=== PATIENT | male | born 1985 | race American Indian/Alaskan Native ===

== ENCOUNTER → 2018-04-25 | Emergency (ER) | payer MEDICAID ==
[~2018-04-25] MED LIST: BACTRIM IV ONE; CALCIUM GLUCONATE 1,000 MG in NACL 0.9% 100 ML IV ONE; D50W (25GM) Syringe IV ONE; D50W (25GM) Vial IV ONE; D5NS 1,000 ML IV SCH; D5W IV ONE; HumuLIN R IV ONE; LASIX IV ONE; LEVAQUIN 750MG/150ML 750 MG/150 ML BAG IV ONE; LOVENOX SUB-Q SCH; NACL 0.9% 1000 ML 1,000 ML IV ONE; NACL 0.9% 1000 ML 1,000 ML IV SCH; PROVENTIL IH ONE; SODIUM BICARBONATE IV ONE; TYLENOL PR PRN; ZOFRAN IV PRN; ZOSYN/NS 4.5GM/100ML 4.5 GM/100 ML VIAL IV ONE; ZOSYN/NS 4.5GM/100ML 4.5 GM/100 ML VIAL IV SCH
--- NOTE | 2018-04-25 00:36 | Emergency Department Report ---
ED CPR HPI - General Stated Complaint: CARDIAC ARREST Time Seen by Provider: 04/25/18 00:26 Source: EMS Mode of arrival: Stretcher Limitations: Altered Mental Status - History of Present Illness Initial Comments: 33-year-old male with a past medical history of end-stage AIDS presents to the hospital status post cardiac arrest. Patient was initially found pulseless and unresponsive by first responders. BLS was initiated. Patient then was found to have a glucose in the 20s and noted to have a Dilaudid pain pump infusion. Patient received D50 and Narcan and regained a pulse. Patient now presents altered with intermmittent agonal respirations supported by bag valve mask and a pulse. Family at the scene stated that patient is a DO NOT RESUSCITATE but they were unable to produce any paperwork prior to resuscitation efforts and transferred. After patient arrival we were prepping for intubation when family produce paperwork that confirms that he is a DO NOT RESUSCITATE patient. Patient then placed on nonrebreather and [facility] hospice insulation technician nurse paged. Mother states pt did not eat today and wasnt feeling well. She is waiting for his father to come to the ED. He lives in [facility] insulation technician RN #[phone] - Related Data Allergies Allergy/AdvReac Type Severity Reaction Status Date / Time morphine Allergy Itching Verified 04/25/18 00:45 ED Review of Systems ROS: Stated complaint: CARDIAC ARREST Other details as noted in HPI Comment: Unobtainable due to pts medical conditions ED Physical Exam - Other Other exam information: General: unresponsive, emaciated Head exam: Atraumatic, normocephalic Eyes exam: Normal appearance, pupils equal reactive to light Neck exam: Normal inspection Respiratory exam: agonal respirations, clear breath sounds Cardiovascular: Normal rate and rhythm, normal heart sounds Abdomen: Soft, nondistended, and nontender, with normal bowel sounds, no rebound, or guarding Extremity: Full range of motion normal inspection no deformity Back: Normal Inspection, full range of motion, no tenderness Neurologic:lethargic, no spontaneous movement, eyes open spontaneously but not on command, does not withdraw to pain Skin: Decubitus ulcer ED Course Vital Signs 04/25/18 04/25/18 04/25/18 00:18 00:34 00:45 Temperature 97.8 F Pulse Rate 74 72 Respiratory Rate Blood Pressure Blood Pressure [Left] O2 Sat by Pulse 32 L Oximetry 04/25/18 04/25/18 04/25/18 00:46 01:08 01:10 Temperature 97.7 F Pulse Rate 73 63 72 Respiratory 24 14 Rate Blood Pressure Blood Pressure 166/61 [Left] O2 Sat by Pulse 91 83 L 94 Oximetry 04/25/18 04/25/18 04/25/18 01:11 01:16 01:30 Temperature Pulse Rate 68 71 Respiratory 22 22 Rate Blood Pressure 129/34 Blood Pressure [Left] O2 Sat by Pulse 95 79 L Oximetry 04/25/18 01:46 Temperature Pulse Rate 72 Respiratory 25 H Rate Blood Pressure 129/34 Blood Pressure [Left] O2 Sat by Pulse Oximetry - Consultations Consultation #1: 04/25/18 00:36 case mary lou Vinson hospice nurse. Patient was apparently recently discharged from inpatient hospice due to pain complaints. We'll contact her inside sales administrator patient's mother to see if patient can qualify for in patient hospice or if he will be further treated here. 04/25/18 00:44 Mother at bedside. spoke to hospice nurse, doesnt want to transfer him to inpatient hospice a this time due to instability, Pt remains DNR - EJ/Peripheral Line Neck R Time Out Performed: Yes Indications: multiple IV sites needed Skin Cleansed in Sterile Fashion: Yes Size: 20 Patient Tolerated Procedure: other (unable to cannulate after 2 attempts) ED Medical Decision Making - Lab Data Result diagrams: 04/25/18 00:57 04/25/18 00:57 Lab Results 04/25/18 04/25/18 Range/Units 00:57 00:57 WBC 14.3 H (4.5-11.0) K/mm3 RBC 2.57 L (3.65-5.03) M/mm3 Hgb 8.1 L (11.8-15.2) gm/dl Hct 27.0 L (35.5-45.6) % MCV 105 H (84-94) fl MCH 32 (28-32) pg MCHC 30 L (32-34) % RDW 19.2 H (13.2-15.2) % Plt Count 20 L (140-440) K/mm3 Seg Neutrophils % Manager Of Global Sodium 134 L (137-145) mmol/L Potassium 6.7 H* (3.6-5.0) mmol/L Chloride 99.9 (98-107) mmol/L Carbon Dioxide 19 L (22-30) mmol/L Anion Gap 22 mmol/L BUN 27 H (9-20) mg/dL Creatinine 0.5 L (0.8-1.5) mg/dL Estimated GFR > 60 ml/min BUN/Creatinine Ratio 54 % Glucose 318 H (75-100) mg/dL Calcium 7.2 L (8.4-10.2) mg/dL Total Bilirubin 1.70 H (0.1-1.2) mg/dL AST 551 H (5-40) units/L ALT 174 H (7-56) units/L Alkaline Phosphatase 1730 H (35-129) units/L Total Creatine Kinase 112 (55-170) units/L CK-MB (CK-2) 2.4 (0.0-4.0) ng/mL CK-MB (CK-2) Rel Index 2.1 (0-4) Troponin T < 0.010 (0.00-0.029) ng/mL Total Protein 5.7 L (6.3-8.2) g/dL Albumin 1.2 L (3.9-5) g/dL Albumin/Globulin Ratio 0.3 % - Medical Decision Making pt is DNR, end stage Aids and appears to be dying we had to stick pt multiple times for blood, despite having veins there isnt any blood return PICC line that pt presents with does not produce blood either i offered to place central line which was declined by mother BP stable with a map > 65 NSR on monitor, ekg pending pt's glucose was trending downward so D50 ordered. D5 NS fluids ordered as well we were unable to obtain all ordered labs because mom did not want us to stick him any more cxr shows b/l infiltrates levaquin, zosyn, bactrim IV initiated to cover for healthcare associated pneumonia as well as PCP Significant thrombocytopenia noted Hyperkalemia with normal renal function Insulin, glucose, albuterol, Lasix, sodium bicarbonate, and calcium gluconate ordered case d/w Dr Lima, hospitalist case dw [facility] hospice nurse. Patient was apparently recently discharged from inpatient hospice due to pain complaints. We'll contact her inside sales administrator patient's mother to see if patient can qualify for in patient hospice. Mother Doesn't want to transfer him to inpatient hospice a this time due to instability , Pt remains DNR. It appears that she is waiting for his father to come from [facility] - Differential Diagnosis sepsis, AIDS, hypoglycemia, cardiac arrest Critical Care Time: No Critical care attestation.: If time is entered above; I have spent that time in minutes in the direct care of this critically ill patient, excluding procedure time. ED Disposition Clinical Impression: AIDS, Cardiopulmonary arrest with successful resuscitation, Hypoglycemia, DNR ( do not resuscitate), Hospice care patient, Pneumonia, Thrombocytopenia, Elevated LFTs, Hyperglycemia Disposition: 09 OP ADMIT IP TO THIS HOSP Is pt being admited?: Yes Condition: Stable Referrals: PRIMARY CARE, [Primary Care Provider] - 3-5 Days Time of Disposition: 01:52 (Dr Lima/hopsitalist)
[2018-04-25 01:04] LABS: Hemoglobin 8.1 gm/dl (11.8-15.2); Mean Corpuscular HGB Conc 30 % (32-34); Mean Corpuscular Hemoglobin 32 pg (28-32); Mean Corpuscular Volume 105 fl (84-94); Red Blood Count 2.57 M/mm3 (3.65-5.03); Red Cell Distribution Width 19.2 % (13.2-15.2)
[2018-04-25 01:13] LABS: Platelet Count 20 K/mm3 (140-440)
[2018-04-25 01:33] LABS: Creatine Kinase MB 2.4 ng/mL (0.0-4.0)
[2018-04-25 01:35] LABS: Alanine Aminotransferase 174 units/L (7-56); Albumin 1.2 g/dL (3.9-5); BUN/Creatinine Ratio 54; Blood Urea Nitrogen 27 mg/dL (9-20); Calcium 7.2 mg/dL (8.4-10.2); Hemolysis Index 20
--- NOTE | 2018-04-25 02:21 | XRay Report ---
FINAL REPORT PROCEDURE: XR CHEST 1V AP TECHNIQUE: Chest radiograph anteroposterior view. CPT 83927 HISTORY: s/p arrest. AIDs COMPARISON: No prior studies are available for comparison. FINDINGS: There are diffuse bilateral pulmonary infiltrates worse on the right. There is a small right pleural effusion. There is no pneumothorax. The heart size is normal. There is a right-sided PICC line. The tip is in the superior vena cava. The bony and soft tissue structures are normal. IMPRESSION: Normal size heart. There are diffuse bilateral pulmonary infiltrates greater on the right..
[2018-04-25 04:08] VITALS: BP 75/28
--- NOTE | 2018-04-25 04:25 | Event Note ---
Date: 04/25/18 CALLED TO SEE PATIENT SUSPECTED TO HAVE . ON EXAMINATION; PATIENT WAS LYING LIFELESS ON HIS BED WITH NO SPONTANEOUS BREATHING OR MOVEMENT. PUPILS WERE FIXED AND DILATED, AUSCULTATION OF THE CHEST REVEALED NO AIR MOVEMENT. AUSCULTATION OF THE HEART REVEALED NO IMPULSES AND PATIENT'S HEART MONITOR SHOWED ASYSTOLE IN 2 LEADS. PATIENT WAS PRONOUNCED AT 3;58 PM AND FAMILY PRESENT WAS NOTIFIED.
--- NOTE | 2018-04-25 05:18 | History and Physical Report ---
CHIEF COMPLAINT: Cardiac arrest. HISTORY OF PRESENT ILLNESS: The patient is a 33-year-old male brought into the Emergency Room following cardiac arrest. The patient was brought by EMS and noted the patient was unresponsive and advanced cardiac life support was started, and the patient was brought in with agonal respirations. Family said that the patient is a DNR but already the patient had resuscitation started and at that time the family was claiming that the patient's code status is do not resuscitate. They do not have any paper work to support the claim. The patient was noted to have low blood sugar and I.V D50W was given, which helped to bring the patient'S blood sugar back to a higher level from the 20s, and the patient was placed on a nonrebreather oxygen mask. The patient was on hospice prior to this presentation and hospice group was paged and response awaited, and family maintained that the patient should not be resuscitated any further. The patient was placed on nonrebreather oxygen mask with IV fluids, and the patient's code ststus of do not resuscitate request was honored. PAST MEDICAL HISTORY: Pertinent for end-stage AIDS. The patient's other medical problems could not be determined at this time. PAST SURGICAL HISTORY: The patient has intraosseous fluid assays placed in the right lower extremity. FAMILY HISTORY: Noncontributory. SOCIAL HISTORY: It is not known whether the patient smokes cigarette, uses illicit drug, and also it is not known whether the patient drinks alcohol. MEDICATIONS: The patient's medications are not known at this time. ALLERGIES: THE PATIENT IS ALLERGIC TO MORPHINE. REVIEW OF SYSTEMS: CONSTITUTIONAL: There is no fever, no chills, no diaphoresis. HEENT: There is no headache or sore throat. CARDIOVASCULAR SYSTEM: There is no chest pain or orthopnea. However, the patient's heart rate was low allowing cardiopulmonary arrest. RESPIRATORY SYSTEM: The patient was found to be in agonal respirations at the time of presentation. GASTROINTESTINAL SYSTEM: There is no nausea, no vomiting, no abdominal pain, diarrhea or constipation. NEUROLOGICAL SYSTEM: The patient was unresponsive and remained obtunded. MUSCULOSKELETAL SYSTEM: There is no joint pain or swelling. DERMATOLOGICAL SYSTEM: There is generalized skin rash but no itching. GENITOURINARY SYSTEM: There is no dysuria, hematuria or flank pain. Rest of system review is normal. PHYSICAL EXAMINATION: GENERAL: At the time of examination, the patient was found to be obtunded and not responding to any stimulus and was having agonal respiration and in acute distress. VITAL SIGNS: At the time of presentation shows temperature of 97.8 degrees Fahrenheit, pulse of 72, respirations of 14, blood pressure 166/61, and O2 sat of 94% on oxygen. HEENT: Showed pupils to be sluggishly responding to light. NECK: Supple with no JVD or carotid bruit. CARDIOVASCULAR SYSTEM: Showed normal first and second heart sounds, with no gallops or murmurs. RESPIRATORY SYSTEM: Showed reduced air entry on both sides of the lung with scattered crackles bilaterally. GASTROINTESTINAL SYSTEM: Showed abdomen to be full, soft, and nontender with no organomegaly or rigidity. NEUROLOGIC SYSTEM: Showed the patient to be obtunded and not responding to any stimulus. MUSCULOSKELETAL SYSTEM: Showed the patient to be severely emaciated with no joint swelling or tenderness. DERMATOLOGICAL SYSTEM: Showed scattered rashes all over the body with hyperpigmented rashes, especially in the chest area and abdominal area. GENITOURINARY SYSTEM: Showed no costovertebral angle tenderness. PERTINENT LABORATORY AND IMAGING STUDIES: The patient has CBC done that shows elevated white count of 14,300 with low hemoglobin of 8.1 and low hematocrit of 27. The patient's chemistry showed a high potassium level of 6.7, low sodium of 134, low CO2 of 19 with elevated BUN of 27, elevated blood glucose of 318, low calcium level of 7.2, and low albumin level of 1.2 and high alkaline phosphatase of 1730. The patient's liver transaminases show high AST of 551 and high ALT of 174. IMAGING STUDIES: The patient had chest x-ray done that shows bilateral pulmonary infiltrates, greater on the right than the left. DIAGNOSES: 1. Cardiopulmonary arrest. 2. Bilateral pneumonia. 3. End-stage AIDS. 4. Thrombocytopenia with platelets of 20,000. 5. Hyperkalemia. PLAN: 1. The patient will be admitted to telemetry and will continue Tylenol 650 mg rectally every 4 hours for fever and headache.The code ststus of DNR should be maitained. 2. The patient will be Zofran 4 mg IV every 8 hours for nausea and vomiting. 3. The patient will be on IV Zosyn 4.5 grams q.8 hours for treatment of pneumonia. 4. The patient will continue on oxygen by nonrebreather mask at 100% rate. 5. The patient will have basic metabolic panel checked in the morning and will be on Accu-Chek q.6 hours. 6. The patient will be on hypoglycemic protocol because of presentation of hypoglycemia initially. JOB# [id number] OCN/NTS MTDD
[2018-04-25 06:52] LABS: Anisocytosis 1+; Band Neutrophils # (Manual) 3.1 K/mm3; Basophils % (Manual) 0 % (0.0-1.8); Eosinophils % (Manual) 0 % (0.0-4.3); Hypochromasia 1+; Myelocytes # (Manual) 0.1 K/mm3; Promyelocytes # (Manual) 0.4 K/mm3; Total Cells Counted 100; Toxic Vacuolation Few
[2018-04-25 06:53] LABS: Burr Cells Few; Giant Platelets Few; Ovalocytes Few
[2018-04-25 07:08] LABS: Platelet Estimate Consistent w Auto
== END ==
LOC: ED 00:23
DX: I46.9 Cardiac arrest, cause unspecified (principal); D69.6 Thrombocytopenia, unspecified; J18.9 Pneumonia, unspecified organism; R94.5 Abnormal results of liver function studies; R73.9 Hyperglycemia, unspecified; E16.2 Hypoglycemia, unspecified; B20 Human immunodeficiency virus [HIV] disease; Z66 Do not resuscitate; Z88.6 Allergy status to analgesic agent
CPT/HCPCS: 36415; 36569; 71045; 80053; 82550; 82553; 82962; 84484; 85007; 85025; 87040; 94644; 94760; 96365; 96366; 96368; 96375; 96376; 99285; J0610; J1940; J1956; J2543; J7042; 96361; J1815